=== PATIENT | female | born 1975 | race Asian ===

== ENCOUNTER 2016-06-03 14:38 | Emergency (ER) | payer SELFPAY ==
[~2016-06-03] VITALS: Ht 152.4 cm; Wt 84.1 kg
[2016-06-03 14:56] LABS: GLUCOSE COMMENT 1 Repeated; GLUCOSE,POINT OF CARE 148 MG/DL (70-110)
[2016-06-03 15:08] LABS: APPEARANCE,URINE CLEAR (CLEAR); GLUCOSE, URINE (UA) 100 mg/dL (NEGATIVE); KETONES,URINE NEGATIVE (NEGATIVE); LEUKOCYTE ESTERASE ,URINE MODERATE (NEGATIVE); OCCULT BLOOD,URINE SMALL (NEGATIVE); PH,URINE 6.5 (5.0-8.0); PROTEIN,URINE NEGATIVE (NEGATIVE)
[2016-06-03 15:32] LABS: SQUAMOUS EPITHELIAL CELL,UR Few /LPF (None Seen)
[2016-06-03 16:41] VITALS: BP 118/74
== END 2016-06-03 16:41 | disposition home or self-care (01) ==
LOC: EMS 14:42
DX: N39.0 Urinary tract infection, site not specified (principal)
CPT/HCPCS: 82962; 87086; 99284